=== PATIENT | male | born 1965 | race Caucasian/White ===

== ENCOUNTER → 2016-09-24 15:30 | Outpatient (CLI) | payer MEDICAID | END | disposition home or self-care (01) | LOC: D.CT 15:30 | DX: R10.2 Pelvic and perineal pain (principal); N50.811 Right testicular pain ==

== ENCOUNTER → 2016-10-08 10:03 | Outpatient (CLI) | payer MEDICAID | END | disposition home or self-care (01) | LOC: D.US 10:03 | DX: N50.819 Testicular pain, unspecified (principal) ==

== ENCOUNTER 2017-05-11 07:10 | Day surgery (SDC) | payer MEDICAID ==
[2017-05-11 08:08] LABS: HEMATOCRIT 44.7 % (42.0-54.0); HEMOGLOBIN 15.5 g/dL (13.5-17.5); MCHC 34.7 g/dL (31.0-37.0); MCV 95.1 fL (80.0-100.0); MEAN PLATELET VOLUME 10.3 fL (7.4-10.4); RBC 4.7 10x6/uL (4.20-6.10); RDW 12.1 % (11.5-14.5); WBC 4.9 10x3/uL (4.8-10.8)
[2017-05-11] MEDS ORDERED: FLOMAX0.4 MG PO (09:43)
[2017-05-11 09:44] VITALS: BMI 23.7
[2017-05-11] MEDS ORDERED: BENTYL 20 MG TA20 MG PO (11:37)
--- NOTE | 2017-05-11 12:04 | NUR ---
IV D/C'D CATH INTACT
--- NOTE | 2017-05-11 12:13 | NUR ---
D/C INSTRUCTIONS EXPLAINED TO PT. VOICED UNDERSTANDING. COPIES OF ALL GIVEN, WELL WRITTEN RX FOR DICYCLOMINE [address] VALLADARES. D/C'D HOME VIA W/C TO PRIVATE CAR.
--- NOTE | 2017-05-20 14:40 | OP ---
PATIENT NAME: TRANG KENDALL MEDICAL RECORD: [id number] :63 [facility] ADMISSION DATE: SURGEON: ERIKA VALLADARES DO DATE OF OPERATION: 05/11/2017 PROCEDURE: Colonoscopy with polypectomy and random biopsies. SCOPE: Olympus video pediatric colonoscope. INDICATIONS FOR PROCEDURE: Diarrhea. MEDICATIONS: Propofol 300 mg IV per anesthesia. WITHDRAWAL TIME: 16 minutes. ESTIMATED BLOOD LOSS: Minimal. COMPLICATIONS: None. FINDINGS: Informed consent was given. The patient was made comfortable with the above medication. After reaching an adequate level of sedation by slow IV push, the patient was placed on his left side. Digital rectal examination was performed and was normal. The endoscope was then advanced under direct visualization through the rectum to the terminal ileum. The scope was slowly withdrawn and mucosa was carefully examined. Prep quality was good. Random biopsies were taken throughout this examination to submit for histology and to rule out microscopic colitis. Stool was collected to submit for any infectious etiology of diarrhea. There were 3 polyps visualized on today's examination. The first was a benign appearing sessile polyp located in the transverse colon. It measured approximately 3-4 mm in diameter. It was removed in 1 piece using hot forceps and completely retrieved. In the rectum, there were two separate polyps. One was a benign appearing diminutive polyp, which was removed using hot forceps in 1 piece. It was completely retrieved. The second was a benign appearing sessile polyp measuring approximately 6 mm in diameter, which was removed using a hot snare in 1 piece and completely retrieved. There were no diverticula or other abnormalities visualized on today's examination. Retroflexion was performed in the rectum with visualization of a single small to medium size internal hemorrhoid, which was not bleeding. Scope was then withdrawn from the patient. The patient tolerated the procedure well and there were no complications. IMPRESSION: 1. Three polyps as described above, removed using a combination of a hot snare and hot forceps. 2. Internal hemorrhoids, which were not bleeding. PLAN AND RECOMMENDATIONS: 1. Discharge home when recovery parameters are met. 2. Follow up biopsy specimen results. 3. Trial of dicyclomine 20 mg twice daily as needed for loose stools. 4. If biopsies indicate evidence of microscopic colitis, this will be treated independently. 5. Can consider Viberzi if dicyclomine does not help symptoms. 6. Recall colonoscopy in 3-5 years. OPERATIVE REPORT [id number] TRANG KENDALL TRANSINT:[id number] Voice Confirmation ID: [id number] DOCUMENT ID: [id number] ERIKA VALLADARES DO at 1440 CC: [id number] DICTATION DATE: 05/11/17 1111 PLAY THERAPIST: 05/11/17 1248 [facility] [place] 05/11/17 [place] [id number] [place] [id number]
== END 2017-05-11 12:17 | disposition home or self-care (01) ==
LOC: D.OPS 07:10
PROVIDERS: Anesthesiology
DX: R19.7 Diarrhea, unspecified (principal); K64.8 Other hemorrhoids; F17.200 Nicotine dependence, unspecified, uncomplicated; N40.0 Benign prostatic hyperplasia without lower urinary tract symptoms; Z01.812 Encounter for preprocedural laboratory examination

== ENCOUNTER 2017-12-08 10:55 | Outpatient (CLI) | payer MEDICAID ==
[~2017-12-08] VITALS: Ht 177.8 cm; Wt 79.5 kg
--- NOTE | ~2017-12-08 | HEMODYNAMI ---
PATIENT:TRANG KENDALL MEDICAL RECORD: [id number] : 63 LOCATION:[facility] ADMISSION DATE: 12/08/17 Generatedon:12/08/201714:48 Patient name: TRANG KENDALL Patient #: [id number] SSN: : 1965 Date of study: 12/08/2017 Page: Of Hemodynamic Procedure Report Patient Data Patient Demographics Procedure consent was obtained First Name: TRANG Gender: Male Last Name: ENOCH : 1965 [facility] Initial: C Age: 52 year(s) Patient #: [id number] Race: Unknown Additional ID: [id number] Contact details [address]: [address] [place] [address] State: [place] City: [place] Zip code: [address] Past Medical History Allergies Allergen Reaction Date Comments Reported Penicillins 12/08/2017 Admission Admission Data Admission Date: 12/08/2017 Admission Time: 10:55 Lab Results Lab Result Date: 12/08/2017 Lab Result Time: 0:00 Biochemistry Name Units Result Min Max BUN mg/dl 13 --(--*-)-- 7 18 Creatinine mg/dl 0.8 --(-*--)-- 0.6 1.3 CBC Name Units Result Min Max Hemoglobin g/dl 15.6 --(--*-)-- 13.5 17.5 Procedure Procedure Types Cath Procedure Diagnostic Procedure C [facility] w/Coronaries PCI Procedure Coronary Stent Coronary Stent Initial Procedure Description Procedure Date Procedure Date: 12/08/2017 Procedure Start Time: 14:20 Procedure End Time: 14:44 Procedure Staff Name Function Kolton Molina MD Performing Physician Ulysses Heredia RT Monitor Tasneem Lizarraga RT Scrub Lobo Jeong RN Nurse Procedure Data Cath Procedure Fluoroscopy Diagnostic fluoroscopy Total fluoroscopy Time: 5 time: 5 min min Diagnostic fluoroscopy Total fluoroscopy dose: 617 dose: 617 mGy mGy Contrast Material Contrast Material Type Amount (ml) Isovue 300 99 Entry Location Entry Primary Successful Side Size Upsize Upsize Entry Closure Kang ccessful Closure Location (Fr) 1 (Fr) 2 (Fr) Remarks Device Remarks Radial Right 6 Fr Mechanical artery Short Compression Estimated blood loss: 10 ml Diagnostic catheters Device Type Used For End Catheter Placement DIAGNOSTIC Lele 110cm Procedure 5Fr catheter ([id number]) Procedure Complications No complications Procedure Medications Medication Administration Route Dosage Oxygen NC 2 l/min Lidocaine 2% added to field 20 Heparin Flush Bag added to field 2 bags (1000units/500ml NS) 0.9% NaCl I.V. 100 ml/hr Radial Cocktail added to field 1 syringe (Verapomil 2mg/Nitro 400mcg/Heparin 1500units) Fentanyl I.V. 50 mcg Versed I.V. 1 mg Versed I.V. 1 mg Fentanyl I.V. 50 mcg Versed I.V. 0.5 mg Heparin Bolus I.V. 8000 units Nitroglycerin IC/IA I.C. 50 mcg Plavix P.O. 600 mg Hemodynamics Rest HGB: 15.6 (g/dl) Heart Rate: 51 (bpm) Pressure Samples Time Site Value (mmHg) Purpose Heart Use Rate(bpm) 14:22 LV 101/2,11 Snapshot 59 14:23 AO 85/52(65) Pullback 40 Gradients Valve Time Site Site 2 Mean SEP/DFP Peak To Heart Use 1 (mmHg) (sec/min) Peak Rate (mmHg) (bpm) Aortic 14:23 LV AO 16 11 40 85/52(65) Calculations Valve P-P Mean Valve Index Valve Source Name Gradient Area Flow (cm2) Aortic 16 16 Snapshots Pre Cath Intra NCS Post Cath Vital Signs Time Heart Resp SPO2 etCO2 NIBP Rhythm Pain Sedation Rate (ipm) (%) (mmHg) (mmHg) Status Level (bpm) 14:03:46 52 20 96 0 106/65(84) NSR 0 (11) 10(A) , No pain 14:08:22 50 18 99 33 110/62(81) NSR 0 (11) 10(A) , No pain 14:12:59 54 16 98 30 99/64(76) NSR 0 (11) 10(A) , No pain 14:17:31 54 15 97 37.5 101/57(74) NSR 0 (11) 10(A) , No pain 14:22:08 67 16 98 38.3 83/53(70) NSR 0 (11) 9(A) , No pain 14:26:38 63 17 96 37.5 94/61(76) NSR 0 (11) 9(A) , No pain 14:31:13 59 16 97 38.3 98/55(74) NSR 0 (11) 9(A) , No pain 14:35:47 62 17 97 39 97/58(82) NSR 0 (11) 9(A) , No pain 14:40:19 68 16 96 37.5 99/66(86) NSR 0 (11) 10(A) , No pain Medications Time Medication Route Dose Verified Delivered Reason Note s Effectiveness by by 14:13:32 Oxygen NC 2 l/min Kolton Buffie used for Jesse Jeong RN procedure 14:13:39 Lidocaine 2% added 20ml Kolton Kolton for local to vial Jesse Molina MD anesthetic field 14:13:44 Heparin Flush added 2 bags Kolton Kolton used for Bag to Jesse Molina MD procedure (1000units/500ml field NS) 14:13:54 0.9% NaCl I.V. 100 Kolton Buffie Per physician ml/hr Jesse Jeong RN 14:14:09 Radial Cocktail added 1 Kolton Kolton for (Verapomil to syringe Jesse Molina MD vasodilation 2mg/Nitro field 400mcg/Heparin 1500units) 14:17:08 Versed I.V. 1 mg Kolton Buffie for sedation Jesse Jeong RN 14:17:51 Fentanyl I.V. 50 mcg Oklton Buffie for sedation Jesse Jeong RN 14:22:21 Versed I.V. 1 mg Kolton Buffie for sedation Jesse Jeong RN 14:22:26 Fentanyl I.V. 50 mcg Kolton Buffie for sedation Jesse Jeong RN 14:27:40 Versed I.V. 0.5 mg Kolton Buffie for sedation Jesse Jeong RN 14:29:29 Heparin Bolus I.V. 8000 Kolton Buffie for veri fied units Jesse Jeong RN anticoagulation with dr molina 14:37:42 Nitroglycerin I.C. 50 mcg Kolton Kolton for IC/IA Jesse Molina MD vasodilation 14:43:16 Plavix P.O. 600 mg Kolton Buffie for Jesse MD Jeong RN antiplatelet therapy Procedure Log Time Note 13:33:54 Signed procedure consent form obtained from patient. 13:33:56 Time tracking: Regular hours (M-F 7:00 - 5:00) 13:34:00 Plan of Care:Hemodynamics will remain stable., Cardiac rhythm will remain stable., Comfort level will be maintained., Respiratory function will remain adequate., Patient/ family verbilizes understanding of procedure., Procedure tolerated without complication., Recovers from procedure without complications.. 13:36:11 H&P Date Dictated: 11/24/2017 Within 30 days and on chart., H&P Addendum completed by physician on day of procedure. (MUST COMPLETE FOR ALL OUTPATIENTS). 13:36:23 Patient allergic to Penicillins 13:39:03 Lab Result : BUN 13 mg/dl 13:39:03 Lab Result : Hemoglobin 15.6 g/dl 13:39:03 Lab Result : Creatinine 0.8 mg/dl 13:44:08 Ulysses CARRERO(R) sent for patient. Start room use. 13:54:14 Patient received from Pre/Post Procedure Room to CCL 1 Alert and oriented. Tansferred to table in Supine position. 13:54:15 Warm blankets applied, and wendy hugger turned on for patient comfort. 13:54:16 Correct patient and procedure confirmed by team. 13:54:16 ECG and BP/O2 sat monitors applied to patient. 14:02:54 Vital chart was started 14:02:57 Baseline sample Acquired. 14:03:01 Rhythm: sinus rhythm 14:03:03 Full Disclosure recording started 14:03:55 Pre-procedure instructions explained to patient. 14:03:56 Pre-op teaching completed and patient verbalized understanding. 14:03:59 Family in waiting room. 14:04:01 Patient NPO since Midnight. 14:08:39 Is the patient allergic to Iodine/contrast media? No. 14:08:41 Is patient on blood thinner?No 14:08:43 Patient diabetic? No. 14:08:47 Previous problem with sedation/anesthesia? No ? 14:08:49 Snore? Yes 14:08:50 Sleep apnea? No 14:08:51 Deviated septum? No 14:08:52 Opens mouth fully? Yes 14:08:53 Sticks out tongue? Yes 14:08:54 Airway obstruction? No ? 14:08:56 Dentures? No ? 14:08:59 Pre procedure: right dorsailis pedis pulse 1+ Palpable, but thready & weak; easily obliterated 14:09:01 Modified Price's test Ulnar < 7 seconds 14:09:07 Patient pain scale 0/10 ?. 14:09:13 IV patent on arrival in left forearm with 0.9% NaCl at KVO. 14:09:15 Lab results completed and on chart. 14:09:18 Right Radial & Right Groin area was prepped with chlora-prep and draped in sterile fashion 14:09:19 Alarms reviewed by R. N. 14:09:19 Sharps counted by scrub and verified by R.N. 14:09:23 Use device set Radial Dx or PCI 14:09:26 Tegaderm 4 x 4 (1626W) opened to sterile field. 14:09:27 ACIST Hand Control (69875) opened to sterile field. 14:09:28 ACIST Manifold (04477) opened to sterile field. 14:09:29 ACIST Syringe (70756) opened to sterile field. 14:09:30 Medline Cath Pack ([id number]) opened to sterile field. 14:09:30 Bag Decanter (2002) opened to sterile field. 14:09:31 DIAGNOSTIC WIRE .035 260cm J wire (910094) opened to sterile field. 14:09:31 MBrace Wrist Support ([id number]) opened to sterile field. 14:09:34 SHEATH 6Fr Prelude Radial ([id number]) opened to sterile field. 14:13:32 Oxygen 2 l/min NC was administered by Lobo Jeong RN; used for procedure; 14:13:39 Lidocaine 2% 20ml vial added to field was administered by Kolton Molina MD; for local anesthetic; 14:13:41 Zero performed for pressure channel P1 14:13:44 Heparin Flush Bag (1000units/500ml NS) 2 bags added to field was administered by Kolton Molina MD; used for procedure; 14:13:54 0.9% NaCl 100 ml/hr I.V. was administered by Lobo Jeong RN; Per physician; 14:14:09 Radial Cocktail (Verapomil 2mg/Nitro 400mcg/Heparin 1500units) 1 syringe added to field was administered by Kolton Molina MD; for vasodilation; 14:14:39 --------ALL STOP TIME OUT------ 14:14:40 Final Timeout: patient, procedure, and site verified with staff and physician. All members of the team are in agreement. 14:14:42 Right Radial & Right Groin site verified by team. 14:14:48 Physical assessment completed. ASA score P 2 - A patient with mild systemic disease as per Kolton Molina MD. 14:14:52 Sedation plan: IV Moderate Sedation Medication:Versed, Fentanyl 14:17:08 Versed 1 mg I.V. was administered by Lobo Jeong RN; for sedation; 14:17:51 Fentanyl 50 mcg I.V. was administered by Lobo Jeong RN; for sedation; 14:19:58 Procedure started. 14:20:16 Local anesthetic to right radial artery with Lidocaine 2% by Kolton Molina MD.INITIAL ACCESS ONLY 14:21:04 A 6 Fr Short sheath was inserted into the Right Radial artery 14:21:55 A DIAGNOSTIC Lele 110cm 5Fr catheter ([id number]) was advanced over the wire and used for Procedure. 14:22:21 Versed 1 mg I.V. was administered by Lobo Jeong RN; for sedation; 14:22:26 Fentanyl 50 mcg I.V. was administered by Lobo Jeong RN; for sedation; 14:23:06 LV angiography performed. 14:23:07 LV gram done using GRACE 14:23:15 EF : 60 % 14:23:16 LV hemodynamics recorded. 14:23:19 Injector settings: Ml/sec: 7, Volume: 15, 14:23:40 LCA angiography performed. 14:24:57 RCA angiography performed. 14:25:37 Catheter exchanged over wire. 14:25:43 Use device set JESSE PCI 14:26:23 INFLATOR Merit BasixCompak ([id number]) opened to sterile field. 14:26:26 TUBING High Pressure Extension Tubing (Jesse) ([id number]) opened to sterile field. 14:26:53 GUIDE 6FR AR 1.0 catheter ([id number]) opened to sterile field. 14:27:32 BMW 300cm [place] 2 J wire ([id number]) opened to sterile field. 14:27:40 Versed 0.5 mg I.V. was administered by Lobo Jeong RN; for sedation; 14:27:53 6 Fr AR 1 guide catheter was inserted over the wire 14:29:29 Heparin Bolus 8000 units I.V. was administered by Lobo Jeong RN; for anticoagulation; verified with dr molina 14:29:47 BMW wire advanced. 14:31:12 Wire advanced across lesion. 14:35:15 Place stent Inflation Number: 1 A INTEGRITY OTW 3.0 X 30 stent ([id number]) was prepped and advanced across the Mid RCA. The stent was deployed at 14 ITZEL for 0:10 (min:sec). 14:37:42 Nitroglycerin IC/IA 50 mcg I.C. was administered by Kolton Molina MD; for vasodilation; 14:38:56 TR BAND Standard ([id number]) opened to sterile field. 14:39:02 Stent catheter was removed intact over wire. 14:40:54 Wire removed. 14:40:55 Guide catheter removed. 14:41:33 Sheath removed intact; hemostasis achieved with Mechanical Compression to the Right Radial artery. 14:41:36 Procedure ended.(Physican Out) 14:42:49 Fluoroscopy time 05.00 minutes. 14:42:53 Fluoroscopy dose: 617 mGy 14:42:53 Flurop Dose total: 617 14:42:58 Contrast amount:Isovue 300 99ml. 14:43:00 Sharps counted by scrub and verified by R.N. 14:43:01 Insertion/operative site no bleeding no hematoma. 14:43:13 TR band inflated with 10cc of air. 14:43:15 Post Procedure Pulses reassessed and unchanged 14:43:16 Plavix 600 mg P.O. was administered by Lobo Jeong RN; for antiplatelet therapy; 14:43:18 Post-procedure physical assessment completed. ASA score P 2 - A patient with mild systemic disease as per Kolton Molina MD. 14:43:20 Post procedure rhythm: unchanged. 14:43:23 Estimated blood loss: 10 ml 14:43:25 Post procedure instruction explained to patient.Patient verbalizes understanding. 14:43:26 Patient needs reinforcement of post procedure teaching. 14:43:36 Procedure type changed to Cath procedure, Diagnostic procedure, LHC, LHC w/Coronaries, PCI procedure, Coronary Stent, Coronary Stent Initial 14:43:37 Procedure and supply charges have been captured, reviewed, submitted and are correct. 14:43:41 Procedure Complication : No complications 14:44:07 Vital chart was stopped 14:44:08 See physician's report for complete and final results. 14:44:12 Report given to Pre/Post Procedure Room. 14:44:32 Patient transfered to Pre/Post Procedure Room with Stretcher. 14:44:34 Procedure ended. 14:44:34 Full Disclosure recording stopped 14:47:31 End room use (Document Last) Intervention Summary Intervention Notes Time ActionType Lesion and Equipment Action# Pressure Duration Attributes Used 14:35:15 Place stent Mid RCA INTEGRITY 1 14 00:10 OTW 3.0 X 30 stent ([id number]) Device Usage Item Name Manufacture Quantity Catalog Number Hospital Part Current M inimal Lot# / Charge Number Stock Stock Serial# Code Tegaderm 4 x 4 3M 1 [id number] 116778 [id number] 5 (1626W) ACIST Hand Acist 1 16543 008096 465508 295294 5 Control (14888) [employer] Inc ACIST Manifold Acist 1 46145 707741 415350 043025 5 (72050) [employer] ACIST Syringe Acist 1 13207 695536 718690 627712 2 0 (34426) [employer] Systems Inc Medline Cath Cardinal 1 [id number] 678002 94867 805643 5 [facility] ([id number]) Bag Decanter Microtek 1 2002S 318795 82645 723176 5 (2001S) Medical Inc. DIAGNOSTIC WIRE St Sabino 1 429280 120193 303344 595204 3 0 .035 260cm J wire (178292) MBrace Wrist Advanced 1 140-0250-00 707332 88784 481689 5 Support Vascular ([id number]) Dynamics SHEATH 6Fr Merit 1 [id number] 167406 357424 857487 5 Prelude Radial Medical ([id number]) DIAGNOSTIC Terumo 1 61-1808 754458 022999 122656 5 Lele 110cm 5Fr catheter (544452) INFLATOR Merit Merit 1 [id number] 453488 200366 327646 1 5 [employer] (UD5127) TUBING High Merit 1 [id number] 070987 66629 451732 1 0 Pressure Medical Extension Tubing (Molina) ([id number]) GUIDE 6FR AR Medtronic 1 [id number] 674288 07603 124704 1 1.0 catheter ([id number]) BMW 300cm Bautista 1 [id number] 338210 954369 455193 5 [place] 2 J Vascular wire (1074481G) INTEGRITY OTW Medtronic 1 [id number] 943850 581202 2 [id number] 3.0 X 30 stent ([id number]) TR BAND Terumo 1 [id number] 443505 148588 184539 4 0 Standard ([id number]) Signature Audit [place] Stage Time Signature Unsigned Intra-Procedure 12/08/2017 Ulysses Heredia 2:47:59 PM RT(R) Signatures Monitor : Ulysses Heredia RT Signature : Date : Time : [place] [address] [place] [address]
[~2017-12-08 10:55] MED LIST: BENTYL 20 MG TA20 MG PO; FLOMAX0.4 MG PO
[2017-12-08] MEDS ORDERED: WELLBUTRIN XL150 M1 PO (11:37)
[2017-12-08 11:44] VITALS: BP 132/79; Ht 177.8 cm; Wt 79.5 kg
[2017-12-08 12:01] LABS: BASOPHILS 0.1 % (0-2); EOSINOPHILS 2.9 % (0-7); HEMATOCRIT 45.5 % (42.0-54.0); HEMOGLOBIN 15.6 g/dL (13.5-17.5); IMMATURE GRANULOCYTES 0.1 % (0-5); LYMPHOCYTES 39.7 % (15-50); MCH 32.3 pg (26.0-34.0); MCHC 34.3 g/dL (31.0-37.0); MCV 94.2 fL (80.0-100.0); MEAN PLATELET VOLUME 10.4 fL (7.4-10.4); MONOCYTES 7.7 % (2-11); NEUTROPHILS 49.5 % (40-80); PLATELET COUNT 201 10x3/uL (130-400); RBC 4.83 10x6/uL (4.20-6.10); RDW 12.2 % (11.5-14.5); WBC 7.9 10x3/uL (4.8-10.8)
[2017-12-08 12:03] LABS: CALC OSMOLALITY 277 mosm/kg (275-300); CALCIUM 9.6 mg/dL (8.5-10.1); CARBON DIOXIDE 24.8 mmol/L (21.0-32.0); CHLORIDE - SERUM 105 mmol/L (98-107); CREATININE - SERUM 0.8 mg/dL (0.6-1.3); GLUCOSE 88 mg/dL (74-106); POTASSIUM - SERUM 4.3 mmol/L (3.5-5.1); SODIUM 140 mmol/L (136-145); UREA NITROGEN 13 mg/dL (7-18); eGFR NON AFRICAN AMERICAN > 90 mL/min (90-120)
[2017-12-08] MEDS ORDERED: PLAVIX75 MG PO (15:23)
[2017-12-08] MEDS ORDERED: BAYER CHEWABLE81 MG PO (15:23)
== END 2017-12-08 19:05 | disposition home or self-care (01) ==
LOC: D.CATH 10:55
PROVIDERS: Internal Medicine Cardiovascular Disease
DX: I25.119 Atherosclerotic heart disease of native coronary artery with unspecified angina pectoris (principal); Z01.812 Encounter for preprocedural laboratory examination

== ENCOUNTER → 2019-02-07 09:05 | Outpatient (CLI) | payer MEDICAID ==
[2017-12-08 11:44] VITALS: BMI 25.1
[~2019-02-07 09:05] MED LIST changes: +BAYER CHEWABLE81 MG PO; +PLAVIX75 MG PO; +WELLBUTRIN XL150 M1 PO
== END | disposition home or self-care (01) ==
LOC: D.HCCARDIO 09:05
PROVIDERS: ATTEND Internal Medicine Cardiovascular Disease
DX: I25.10 Atherosclerotic heart disease of native coronary artery without angina pectoris (principal)